=== PATIENT | female | born 1965 | race Caucasian/White ===

== ENCOUNTER 2019-02-28 07:11 | Day surgery (SDC) | payer MEDICARE, MEDICAID ==
[2019-02-28] MEDS ORDERED: Dextrose 5%-Lactated Ringers 1,000 ML IV SCH (07:30)
[2019-02-28] MEDS ORDERED: Glycopyrrolate 0.2 MG/ML 2 ML SDV IVPUSH ONE (08:15)
[2019-02-28] MEDS ORDERED: fentaNYL 100 MCG/2 ML SDV ONE (08:26)
[2019-02-28] MEDS ORDERED: Propofol 200 MG/20 ML SDV ONE (08:26)
[2019-02-28] MEDS ORDERED: Midazolam 1 MG/ML 2 ML SDV ONE (08:26)
--- NOTE | 2019-03-01 12:30 | OR ---
DATE OF PROCEDURE: 02/28/2019 PREOPERATIVE DIAGNOSIS: Weight regain, status post previous Kimi-en-Y gastric bypass. POSTOPERATIVE DIAGNOSIS: Weight regain, status post Kimi-en-Y gastric bypass with moderately enlarged gastric pouch and enlarged gastrojejunostomy. PROCEDURE PERFORMED: Upper GI endoscopy with biopsies of gastric pouch for CLOtest. ANESTHESIA: IV sedation. INDICATION FOR PROCEDURE: This is a 53-year-old female presenting for evaluation of Kimi-en- Y gastric bypass status. She had a gastric bypass done laparoscopically in 2001 and initially got good results, now gained weight back up to BMI of somewhat over 40, and the plan is to proceed with upper endoscopy to evaluate her present anatomy. Potential risks including bleeding and perforation were discussed, and the patient wishes to proceed. PROCEDURE DETAIL: The patient was taken to the operating room and placed in the left lateral decubitus position. IV sedation was administered, after which the upper GI endoscope was passed orally through the length of the esophagus through the gastric pouch and gastrojejunostomy, and from there roughly 20 cm into the Kimi limb. Findings included normal hypopharynx, larynx, upper esophageal sphincter, and esophageal body. At the EG junction, there was no significant inflammation present. The pouch and gastrojejunostomy and Kimi limb likewise had no inflammation. The pouch was moderately enlarged, measuring around 6 cm in maximal dimension, and the gastrojejunostomy also fairly patulous. Otherwise, no abnormalities were noted. Biopsies were obtained from the gastric pouch and sent for CLOtest for H. pylori. Minimal bleeding from the biopsy site was seen and the procedure was then concluded. The patient was taken to the recovery room in satisfactory condition. The patient is working on psychological clearance prior to revision. If this is cleared, the plan operatively would be to try to do the revision laparoscopically. I think we would reduce the pouch size over an Raphael tube, which would also serve to decrease the size of the gastrojejunostomy and then lengthen the limb lengths, such that somewhat more in the way of malabsorption would occur. This will be scheduled, pending psychological clearance. Javon Ordoñez MD /[id number]
== END 2019-02-28 10:45 | disposition home or self-care (01) ==
LOC: JP.SDS 07:11
PROVIDERS: ATTEND Surgery
DX: E66.9 Obesity, unspecified (principal); K91.89 Other postprocedural complications and disorders of digestive system; K21.9 Gastro-esophageal reflux disease without esophagitis; F17.210 Nicotine dependence, cigarettes, uncomplicated; Z98.84 Bariatric surgery status
CPT/HCPCS: 43239; 87081; J2250; J2704; J3010; J3490; J7042